=== PATIENT | male | born 1940 | race Caucasian/White ===

== ENCOUNTER 2017-08-27 11:47 | Day surgery (SDC) | payer MEDICARE, OTHER ==
[2017-08-27] MEDS ORDERED: LACTATED RINGERS 1,000 ML IV ONE (12:06)
[2017-08-27] MEDS ORDERED: fentaNYL 100 MCG/2 ML VIAL IVP ONE (12:50)
[2017-08-27] MEDS ORDERED: MIDAZOLAM 10 MG/2 ML VIAL IVP ONE (12:50)
[2017-08-27 13:53] VITALS: BP 121/83
== END 2017-08-27 11:48 | disposition home or self-care (01) ==
LOC: SDS 11:47
PROVIDERS: ATTEND Surgery
PROC: 0DBN8ZX Excision of Sigmoid Colon, Via Natural or Artificial Opening Endoscopic, Diagnostic (ICD-10-PCS; principal; 2017-08-27 12:45)
DX: Z12.11 Encounter for screening for malignant neoplasm of colon (principal); D12.5 Benign neoplasm of sigmoid colon; Z79.82 Long term (current) use of aspirin; Z95.5 Presence of coronary angioplasty implant and graft; Z87.891 Personal history of nicotine dependence
CPT/HCPCS: 45380; J2250; J7120

== ENCOUNTER 2019-05-15 07:44 | Outpatient (CLI) | payer MEDICARE, OTHER ==
--- NOTE | 2019-05-16 22:45 | Ultrasound Report ---
Reason: NICOTINE ADDICTION IN REMISSION Procedure Date: 05/15/2019 Accession Number: [id number] / [id number] Procedure: US - Aorta Screening CPT Code: FULL RESULT: EXAM: AORTIC DOPPLER ULTRASOUND EXAM DATE: 05/15/2019 08:06 AM. CLINICAL HISTORY: Nicotine addiction in remission. COMPARISON: None. TECHNIQUE: Real-time sonographic imaging of retroperitoneal vascular structures, including color-flow, Doppler flow and spectral analysis was performed by the crown buffer. Multiple claims customer service representative static images were saved for review. FINDINGS: Aorta: The abdominal aorta was adequately visualized. No evidence for abdominal aortic aneurysm. Aorta: Proximal: Sagittal AP 2.3 cm. Mid: Transverse 2.0 x 1.8 cm. Distal: Transverse 1.5 x 1.8 cm. Plaque visualized: Yes, distal aorta and iliacs. Iliacs: Right Iliac: Transverse 1.4 x 1.1 cm. Left Iliac: Transverse 1.2 x 1.2 cm. Iliac Vessels: The visualized proximal common iliac calibers as noted above. Other: None. IMPRESSION: No abdominal aortic aneurysm seen. RADIA
== END 2019-05-15 07:45 | disposition home or self-care (01) ==
LOC: DI 07:44
PROVIDERS: ATTEND Family Medicine
DX: Z13.6 Encounter for screening for cardiovascular disorders (principal); F17.201 Nicotine dependence, unspecified, in remission
CPT/HCPCS: 76706

== ENCOUNTER 2019-09-29 08:49 | Outpatient (CLI) | payer MEDICARE, OTHER ==
[2019-09-29] MEDS ORDERED: BARIUM SULFATE 700 MG TABLET PO ONE (10:03)
[2019-09-29] MEDS ORDERED: SIMETHICONE/SOD BICARB/CIT AC 1 EACH PACKET PO ONE (10:03)
[2019-09-29] MEDS ORDERED: BARIUM SULFATE 135 ML BOTTLE PO ONE (10:03)
[2019-09-29] MEDS ORDERED: BARIUM SULFATE 148 GM POWDER PO ONE (10:03)
--- NOTE | 2019-09-29 11:02 | XRAY Report ---
Reason: PERSISTENT VOMITING Procedure Date: 09/29/2019 Accession Number: [id number] / [id number] Procedure: FL - UGI W/Air CPT Code: Final Report FULL RESULT: EXAM: UPPER GI SERIES EXAM DATE: 09/29/2019 10:02 AM. CLINICAL HISTORY: Persistent vomiting. COMPARISONS: None. TECHNIQUE: Routine double contrast upper gastrointestinal technique. Fluoroscopy Time: 3 minutes 23 seconds. Number of fluoroscopy images: 24. FINDINGS: Swallowing Mechanism: Normal oral phase and swallowing reflex. No episodes of tracheal penetration or aspiration evident. There appears to be a posterior diverticulum in the proximal esophagus/hypopharynx region, possible Zenker's diverticulum. Esophageal Motility: Uncoordinated peristaltic stripping wave with reflux and diffuse esophageal spasm. Esophageal Mucosa: Normal. No ulcerations or masses. Gastroesophageal Junction: Normal. No hernia or significant reflux demonstrated with or without Valsalva maneuvers. Stomach: Normal gastric mucosal pattern. No ulcers identified. Duodenum: Normal duodenal mucosal pattern. No ulcers or diverticula identified. Other: None. IMPRESSION: Esophageal spasm and ineffective stripping wave with reflux. 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 RAD[facility]
== END 2019-09-29 08:50 | disposition home or self-care (01) ==
LOC: DI 08:49
PROVIDERS: ATTEND Family Medicine
DX: K22.4 Dyskinesia of esophagus (principal); K21.9 Gastro-esophageal reflux disease without esophagitis
CPT/HCPCS: 74246; A9270

== ENCOUNTER 2020-12-09 08:00 | Outpatient (CLI) | payer MEDICARE, OTHER ==
[2020-12-09 11:54] LABS: BASOPHILS % (AUTO) 0.5 %; EOSINOPHILS # (AUTO) 0.3 10^3/uL (0.0-0.7); EOSINOPHILS % (AUTO) 3.9 %; HCT - HEMATOCRIT 42.1 % (42.0-52.0); HGB - HEMOGLOBIN 13.7 g/dL (14.0-18.0); LYMPHOCYTES # (AUTO) 1.8 10^3/uL (1.5-3.5); LYMPHOCYTES % (AUTO) 27.1 %; MEAN CORPUSCULAR HEMOGLOBIN 29.5 pg (27.0-31.0); MEAN CORPUSCULAR HGB CONC 32.5 g/dL (32.0-36.0); MEAN CORPUSCULAR VOLUME 90.7 fL (80.0-94.0); MEAN PLATELET VOLUME 10.3 fL (7.4-11.4); MONOCYTES # (AUTO) 0.7 10^3/uL (0.0-1.0); MONOCYTES % (AUTO) 10.5 %; NEUTROPHILS # (AUTO) 3.8 10^3/uL (1.5-6.6); NEUTROPHILS % (AUTO) 57.7 %; PLT - PLATELET COUNT 185 10^3/uL (130-450); RED BLOOD COUNT 4.64 10^6/uL (4.70-6.10); RED CELL DISTRIBUTION WIDTH 13.3 % (12.0-15.0); WHITE BLOOD COUNT 6.6 x10^3/uL (4.8-10.8)
[2020-12-09 12:18] LABS: ALBUMIN 3.9 g/dL (3.2-5.5); ALBUMIN/GLOBULIN RATIO 1.3 (1.0-2.2); ALKALINE PHOSPHATASE 82 IU/L (42-121); ALT ALANINE AMINOTRANSFERASE 30 IU/L (10-60); AST ASPARTATE AMINOTRANSFERASE 25 IU/L (10-42); BILIRUBIN,TOTAL 0.9 mg/dL (0.2-1.0); BUN - BLOOD UREA NITROGEN 18 mg/dL (6-20); CALCIUM 9.2 mg/dL (8.5-10.3); CARBON DIOXIDE - CO2 27 mmol/L (21-32); CHLORIDE 103 mmol/L (101-111); CHOL/HDL RATIO 2.8 (<5.0); CHOLESTEROL 133 mg/dL; CREATININE 0.9 mg/dL (0.6-1.2); GFR - MDRD 81 (>89); GLUCOSE 102 mg/dL (70-100); HDL CHOLESTEROL 47 mg/dL; LDL CHOLESTEROL,CALCULATED 70 mg/dL; LDL/HDL RATIO 1.5 (<3.6); POTASSIUM 4.4 mmol/L (3.5-5.0); SODIUM 138 mmol/L (135-145); TOTAL PROTEIN 6.9 g/dL (6.7-8.2); TRIGLYCERIDES 82 mg/dL; VLDL CHOLESTEROL 16 mg/dL
== END 2020-12-09 23:59 | disposition home or self-care (01) ==
LOC: LAB.WCP 08:00
PROVIDERS: ATTEND Family Medicine
DX: I25.10 Atherosclerotic heart disease of native coronary artery without angina pectoris (principal)
CPT/HCPCS: 36415; 80053; 80061; 83721; 85025

== ENCOUNTER 2021-04-28 12:11 | Outpatient (CLI) | payer MEDICARE, OTHER ==
[2021-04-28] MEDS ORDERED: IOVERSOL 320 100 ML VIAL IVP ONE ×2 (12:43→13:20)
[2021-04-28 12:57] LABS: CREATININE 0.8 mg/dL (0.6-1.2)
--- NOTE | 2021-04-28 13:42 | CT Report ---
PROCEDURE: CHEST W INDICATIONS: ZENKER DIVERTICULUM, DYSPHAGIA CONTRAST: IV CONTRAST: Optiray 320 ml: 100 PO CONTRAST: *NO PO CONTRAST TECHNIQUE: After the administration of intravenous contrast, 1 mm axial images were acquired from the pulmonary apices through the posterior costophrenic angles. Axial 5 mm soft tissue kernel reconstructions were performed as well as 8 mm axial MIP and coronal and sagittal 5 mm reformations. For radiation dose reduction, the following was used: automated exposure control, adjustment of mA and/or kV according to patient size. COMPARISON: None. FINDINGS: Image quality: Excellent. Lungs and pleura: Patchy bronchopneumonia, posterior left lower lobe, possibly indicating aspiration. No pleural effusions or pneumothorax. Central and peripheral airways are patent and normal in calib er. Mediastinum: Heart size is normal. No pericardial effusion. Moderate coronary artery calcifications . No mediastinal or hilar adenopathy by size criteria. Thoracic aorta and central pulmonary arterie s are normal in size. Esophagus is normal in caliber. No hiatal hernia. Bones and chest wall: A solitary sclerotic small lesion in the inferior posterior T11 vertebral body most likely represents a bone island. No other bony lesions identified. No vertebral body compression fractures. No axillary or supraclavicular adenopathy by size criteria. Thyroid is unremarkable as visualized. Abdomen: Visualized upper abdominal solid organs appear normal. Upper abdominal bowel loops are nor mal in caliber. IMPRESSION: 1. Focal left basilar pneumonia may represent evidence of aspiration. 2. Coronary artery disease. 3. Otherwise unremarkable chest with contrast. CLINICAL RECOMMENDATION STATEMENTS: In patients <35 years with an ITN detected on CT, MRI, or extrathyroidal ultrasound, the Committee re commends further evaluation with dedicated thyroid ultrasound if the nodule is "e1 cm and has no susp icious imaging features, and if the patient has normal life expectancy. In patients "e35 years with an ITN detected on CT, MRI, or extrathyroidal ultrasound, the Committee r ecommends further evaluation with dedicated thyroid ultrasound if the nodule is "e1.5 cm and has no s uspicious imaging features, and if the patient has normal life expectancy. (ACR, 2014) Reviewed by: Seamus Lund MD on 04/28/2021 1:40 PM PDT Approved by: Seamus Lund MD on 04/28/2021 1:40 PM PDT Station ID: [id number]
== END 2021-04-28 12:12 | disposition home or self-care (01) ==
LOC: LAB 12:11
PROVIDERS: ATTEND Surgery
DX: K22.5 Diverticulum of esophagus, acquired (principal); R13.10 Dysphagia, unspecified; J18.9 Pneumonia, unspecified organism; I25.10 Atherosclerotic heart disease of native coronary artery without angina pectoris
CPT/HCPCS: 36415; 71260; 82565; Q9967

== ENCOUNTER 2022-10-19 09:40 | Outpatient (CLI) | payer MEDICARE, OTHER ==
[2022-10-19 10:01] LABS: BASOPHILS % (AUTO) 0.6 %; EOSINOPHILS # (AUTO) 0.2 10^3/uL (0.0-0.7); EOSINOPHILS % (AUTO) 2.5 %; HCT - HEMATOCRIT 41.8 % (42.0-52.0); HGB - HEMOGLOBIN 13.5 g/dL (14.0-18.0); LYMPHOCYTES # (AUTO) 1.9 10^3/uL (1.5-3.5); LYMPHOCYTES % (AUTO) 26.9 %; MEAN CORPUSCULAR HEMOGLOBIN 29.4 pg (27.0-31.0); MEAN CORPUSCULAR HGB CONC 32.3 g/dL (32.0-36.0); MEAN CORPUSCULAR VOLUME 91.1 fL (80.0-94.0); MEAN PLATELET VOLUME 9.8 fL (7.4-11.4); MONOCYTES # (AUTO) 0.7 10^3/uL (0.0-1.0); MONOCYTES % (AUTO) 9.5 %; NEUTROPHILS # (AUTO) 4.1 10^3/uL (1.5-6.6); NEUTROPHILS % (AUTO) 60.2 %; PLT - PLATELET COUNT 196 10^3/uL (130-450); RED BLOOD COUNT 4.59 10^6/uL (4.70-6.10); RED CELL DISTRIBUTION WIDTH 13.3 % (12.0-15.0); WHITE BLOOD COUNT 6.9 x10^3/uL (4.8-10.8)
[2022-10-19 10:19] LABS: ALBUMIN 3.8 g/dL (3.2-5.5); ALBUMIN/GLOBULIN RATIO 1.1 (1.0-2.2); ALKALINE PHOSPHATASE 88 IU/L (42-121); ALT ALANINE AMINOTRANSFERASE 22 IU/L (10-60); AST ASPARTATE AMINOTRANSFERASE 20 IU/L (10-42); BILIRUBIN,TOTAL 0.5 mg/dL (0.2-1.0); BUN - BLOOD UREA NITROGEN 14 mg/dL (6-20); CALCIUM 9.2 mg/dL (8.5-10.3); CARBON DIOXIDE - CO2 30 mmol/L (21-32); CHLORIDE 103 mmol/L (101-111); CHOL/HDL RATIO 2.7 (<5.0); CHOLESTEROL 134 mg/dL; CREATININE 0.9 mg/dL (0.6-1.2); GFR - MDRD 81 (>89); GLUCOSE 102 mg/dL (70-100); HDL CHOLESTEROL 50 mg/dL; LDL CHOLESTEROL,CALCULATED 71 mg/dL; LDL/HDL RATIO 1.4 (<3.6); POTASSIUM 4.6 mmol/L (3.5-5.0); SODIUM 139 mmol/L (135-145); TOTAL PROTEIN 7.2 g/dL (6.7-8.2); TRIGLYCERIDES 65 mg/dL; VLDL CHOLESTEROL 13 mg/dL
== END 2022-10-19 09:41 | disposition home or self-care (01) ==
LOC: LAB 09:40
PROVIDERS: ATTEND Physician Assistant
DX: I25.10 Atherosclerotic heart disease of native coronary artery without angina pectoris (principal)
CPT/HCPCS: 36415; 80053; 80061; 83721; 85025

== ENCOUNTER 2023-05-21 08:41 | Day surgery (SDC) | payer BC, MEDICARE ==
[2023-05-21] MEDS ORDERED: LACTATED RINGERS 1,000 ML IV ONE (09:00)
--- NOTE | 2023-05-21 09:39 | ANESTHESIA ---
Pre-Anesthesia VS, & Labs - Diagnosis screening - Procedure colonoscopy Vital Signs: Temp Pulse Resp BP Pulse Ox O2 Flow Rate 36.0 C L 92 17 129/75 98 05/21/23 09:01 05/21/23 09:01 05/21/23 09:01 05/21/23 09:01 05/21/23 09:01 Height: 6 ft 2 in Weight (kg): 98.6 kg Body Mass Index: 27.8 BMI Classification: Overweight - NPO Other (prep as directed) Home Medications and Allergies Aspirin [Aspirin EC] 81 mg PO DAILY 08/27/17 Atorvastatin [Lipitor] 0 mg PO DAILY 08/27/17 Citalopram Hydrobromide [Citalopram HBr] 10 mg PO DAILY 08/27/17 Multivit-Min/Iron Fum/Folic AC [Mtrrj-Hwjffox-Hjyiwhef Tablet] 1 each PO DAILY 08/27/17 Allergies/Adverse Reactions: Allergies Allergy/AdvReac Type Severity Reaction Status Date / Time lovastatin AdvReac Unknown Verified 05/21/23 09:06 simvastatin [From Zocor] AdvReac Unknown Verified 05/21/23 09:06 Anes History & Medical History - Anesthetic History Anesthesia Complications: reports: No previous complications - Medical History Cardiovascular: reports: Coronary artery disease Pulmonary: reports: None Gastrointestinal: reports: Colon polyps Urinary: reports: Benign prostate hypertrophy Neuro: reports: Seizure disorder (remote history) Musculoskeletal: reports: None Endocrine/Autoimmune: reports: None Skin: reports: None Smoking Status: Former smoker - Surgical History General: reports: Appendectomy, Other Cardiothoracic: reports: Coronary stent Urologic: reports: Prostatic surgery Exam General: Alert, Oriented x3 Dental: WNL Mouth Opening: Greater than 4 Fingerbreadths Neck Mobility: Normal Mallampati classification: II Thyromental Distance: greater than 6 cm Respiratory: Lungs clear Cardiovascular: Regular rate, Normal S1, Normal S2 Plan Anesthesia Type: Total IV Consent for Procedure(s) Verified and Reviewed: Yes Code Status: Attempt Resuscitation ASA classification: 3-Severe systemic disease Is this case an emergency?: No
[2023-05-21] MEDS ORDERED: PROPOFOL 500 MG/50 ML 500 MG/50 ML VIAL ONE (10:08)
[2023-05-21] MEDS ORDERED: SIMETHICONE 40 MG/0.6 ML 15 ML BOTTLE PO ONE (10:12)
[2023-05-21] MEDS ORDERED: LACTATED RINGERS 550 ML IV ONE (10:20)
[2023-05-21 10:46] VITALS: BP 119/69; O2SAT 98
--- NOTE | 2023-05-21 12:03 | ANESTHESIA POST OP EVALUATION ---
Anesthesia Post Eval - Post Anesthesia Eval Vitals: Last Vital Signs Temp 36.0 C L 05/21/23 10:39 Pulse 14 L 05/21/23 10:39 Resp 16 05/21/23 10:39 BP 119/69 05/21/23 10:39 Pulse Ox 98 05/21/23 10:39 O2 Flow Rate CV Function Including HR & BP: Stable Pain Control: Satisfactory Nausea & Vomiting: Negative Mental Status: Baseline Respiratory Status: Airway Patent Hydration Status: Satisfactory Anesthesia Complications: None
== END 2023-05-21 08:42 | disposition home or self-care (01) ==
LOC: SDS 08:41
PROVIDERS: ATTEND Surgery
DX: Z12.11 Encounter for screening for malignant neoplasm of colon (principal); I25.10 Atherosclerotic heart disease of native coronary artery without angina pectoris; Z86.010 Personal history of colon polyps; Z87.891 Personal history of nicotine dependence
CPT/HCPCS: A9270; G0105; J7120

== ENCOUNTER 2023-07-24 07:49 | Outpatient (CLI) | payer MEDICARE ==
[2023-07-24 08:08] LABS: BASOPHILS % (AUTO) 0.5 %; EOSINOPHILS # (AUTO) 0.2 10^3/uL (0.0-0.7); EOSINOPHILS % (AUTO) 2.9 %; HCT - HEMATOCRIT 43.1 % (42.0-52.0); HGB - HEMOGLOBIN 13.7 g/dL (14.0-18.0); LYMPHOCYTES # (AUTO) 1.7 10^3/uL (1.5-3.5); LYMPHOCYTES % (AUTO) 26.2 %; MEAN CORPUSCULAR HEMOGLOBIN 28.7 pg (27.0-31.0); MEAN CORPUSCULAR HGB CONC 31.8 g/dL (32.0-36.0); MEAN CORPUSCULAR VOLUME 90.4 fL (80.0-94.0); MEAN PLATELET VOLUME 9.8 fL (7.4-11.4); MONOCYTES # (AUTO) 0.7 10^3/uL (0.0-1.0); MONOCYTES % (AUTO) 10.3 %; NEUTROPHILS # (AUTO) 3.9 10^3/uL (1.5-6.6); NEUTROPHILS % (AUTO) 59.8 %; PLT - PLATELET COUNT 192 10^3/uL (130-450); RED BLOOD COUNT 4.77 10^6/uL (4.70-6.10); RED CELL DISTRIBUTION WIDTH 13.2 % (12.0-15.0); WHITE BLOOD COUNT 6.5 x10^3/uL (4.8-10.8)
[2023-07-24 08:30] LABS: ALBUMIN 4.1 g/dL (3.2-5.5); ALBUMIN/GLOBULIN RATIO 1.5 (1.0-2.2); ALKALINE PHOSPHATASE 75 IU/L (42-121); ALT ALANINE AMINOTRANSFERASE 20 IU/L (10-60); AST ASPARTATE AMINOTRANSFERASE 17 IU/L (10-42); BILIRUBIN,TOTAL 0.5 mg/dL (0.2-1.0); BUN - BLOOD UREA NITROGEN 18 mg/dL (6-20); CALCIUM 9.1 mg/dL (8.5-10.3); CARBON DIOXIDE - CO2 28 mmol/L (21-32); CHLORIDE 105 mmol/L (101-111); CHOL/HDL RATIO 2.8 (<5.0); CHOLESTEROL 142 mg/dL; GFR - MDRD 72 (>89); GLUCOSE 104 mg/dL (74-104); HDL CHOLESTEROL 50 mg/dL; LDL CHOLESTEROL,CALCULATED 76 mg/dL; LDL/HDL RATIO 1.5 (<3.6); POTASSIUM 4.2 mmol/L (3.5-4.5); SODIUM 138 mmol/L (135-145); TOTAL PROTEIN 6.8 g/dL (6.4-8.9); TRIGLYCERIDES 79 mg/dL (48-352); VLDL CHOLESTEROL 16 mg/dL
== END 2023-07-24 07:50 | disposition home or self-care (01) ==
LOC: LAB 07:49
PROVIDERS: ATTEND Physician Assistant
DX: Z00.00 Encounter for general adult medical examination without abnormal findings (principal); E78.5 Hyperlipidemia, unspecified
CPT/HCPCS: 36415; 80053; 80061; 83721; 85025

== ENCOUNTER 2024-01-09 09:52 | Outpatient (CLI) | payer MEDICARE ==
--- NOTE | 2024-01-11 13:05 | XRAY Report ---
PROCEDURE: Toe(s) 2+V LT INDICATIONS: LEFT TOE PAIN TECHNIQUE: 3 views of the first toe(s) acquired. COMPARISON: None. FINDINGS: Bones: No fractures or dislocations. No suspicious bony lesions. Moderate degenerative joint disea se at the first metatarsophalangeal joint and interphalangeal joints. There is periarticular bony ero reina at the first interphalangeal joint. Osteopenia. Soft tissues: No suspicious soft tissue densities. IMPRESSION: 1. No acute bony abnormality. 2. Moderate arthritic changes. There is periarticular bony erosion at the first interphalangeal joint . Recommend clinical correlation for inflammatory arthritis such as erosive OA. 3. Osteopenia. Reviewed by: Minesh Hedrick MD on 01/11/2024 1:04 PM PDT Approved by: Minesh Hedrick MD on 01/11/2024 1:04 PM PDT Station ID: [id number]
== END 2024-01-09 09:53 | disposition home or self-care (01) ==
LOC: DI 09:52
PROVIDERS: ATTEND Emergency Medicine
DX: M19.072 Primary osteoarthritis, left ankle and foot (principal); M85.872 Other specified disorders of bone density and structure, left ankle and foot
CPT/HCPCS: 73660